=== PATIENT | male | born 1975 | race African-American/Black ===

== ENCOUNTER 2023-10-31 20:19 | Emergency (ER) | payer OTHER, SELFPAY ==
[2023-10-31 20:28] VITALS: BP 188/108; PULSE 87; RESP 16; TEMP 36.6; O2SAT 98; BMI 40.5
--- NOTE | 2023-10-31 20:36 | DI.RAD.S_ITS ---
PROCEDURE: XR SHOULDER LT MIN 2V INDICATIONS: pain TECHNIQUE: 3 views of the shoulder were acquired. COMPARISON: None. FINDINGS: Bones: No fractures or dislocations. No suspicious bony lesions. Visualized ribs appear intact. Soft tissues: No suspicious soft tissue calcifications. IMPRESSION: No acute bony abnormality. Dictated by: Chris Sharma M.D. on 10/31/2023 at 20:58 Approved by: Chris Sharma M.D. on 10/31/2023 at 20:58
--- NOTE | 2023-10-31 20:36 | DI.RAD.S_ITS ---
PROCEDURE: XR WRIST LT MIN 3V INDICATIONS: pain TECHNIQUE: 3 views of the wrist were acquired. COMPARISON: None. FINDINGS: Bones: No fractures or dislocations. No suspicious bony lesions. Soft tissues: No suspicious soft tissue calcifications. IMPRESSION: No acute bony abnormality. Dictated by: Chris Sharma M.D. on 10/31/2023 at 20:58 Approved by: Chris Sharma M.D. on 10/31/2023 at 20:59
[2023-10-31 21:06] VITALS: BP 171/112; PULSE 80; RESP 18; O2SAT 99
[2023-10-31 22:06] VITALS: BP 172/89; PULSE 86; RESP 18; O2SAT 97
--- NOTE | 2023-10-31 22:12 | ED_ITS ---
HPI - Extremity Problem General Chief complaint: Extremity Problem,Nontraumatic Stated complaint: lt shoulder pain Time Seen by Provider: 10/31/23 22:11 Source: patient Mode of arrival: Ambulatory History of Present Illness HPI Narrative: 48-year-old gentleman with a history of diabetes on nighttime insulin, hypertension who presents with acute onset left shoulder pain to the point that he is unable to move the left shoulder joint. He is noticing some swelling down the arm with swelling into the hand in the wrist without significant joint pain in the hand or the wrist. No fevers or warmth. No obvious trauma. Symptoms have been increasing over the last 24 hours. He does not describe current problems with other joints. No recent fever cough or chills. He does note that they are other family members with rheumatoid arthritis and he is wondering if he may in fact have rheumatoid arthritis. He will occasionally have severe painful flares in various joints including shoulders wrists feet and ankles. Related Data Previous Rx's Medication Instructions Recorded methylprednisolone 4 mg tablets in See Rx Instructions PO .COMPLEX 11/01/23 a dose pack (Medrol (Luciano)) #21 ea Allergies Allergy/AdvReac Type Severity Reaction Status Date / Time No Known Drug Allergies Allergy Verified 10/31/23 20:32 Review of Systems Review of Systems Narrative: Pertinent positive and negative findings as per HPI Patient History Medical History (Updated 11/01/23 @ 00:46 by Susanna Wall MD) Hypertension Type 2 diabetes mellitus Social History Smoking Status: Never smoker Smoking Status: Never smoker Substance Use Type: does not use Exam Initial Vital Signs Initial Vital Signs: Vital Signs Temperature 97.8 F 10/31/23 20:28 Pulse Rate 87 10/31/23 20:28 Respiratory Rate 16 10/31/23 20:28 Blood Pressure 188/108 H 10/31/23 20:28 Pulse Oximetry 98 10/31/23 20:28 Oxygen Delivery Method Room Air 10/31/23 20:28 General: Alert appropriate, moderate pain and unable to move his left shoulder joint. Gentleman has a a BMI of 50 and is heavily muscled making joint exam somewhat more challenging Respiratory: Able to speak in full sentences, no obvious respiratory distress Skin: No obvious rashes, warm and dry Neurologic: Grossly intact no obvious asymmetries or abnormalities Psych: appropriate insight and affect, cooperative Musculoskeletal: Left shoulder does not have any warmth or erythema. There is fullness over the shoulder and deltoid area. He does not have any tenderness at the AC joint with specific palpation. He has tenderness with any movement of the shoulder joint at all. If the shoulder joint is stabilized he does not have tenderness at the elbow or wrist on the left side. He does have slight swelling to the left arm to the fingers in comparison to the right side again without any erythema. Bedside ultrasound of the left shoulder does not suggest significant bursal collection or large joint effusion Course Orders Ordered: ED Orders 10/31/23 20:36 XR shoulder LT min 2V Stat XR wrist LT min 3V Stat 10/31/23 22:55 CBC Auto Diff [Complete Blood Count AUTO DIFF] Stat CRP [C-Reactive Protein Quant] Stat Erythrocyte Sedimentation Rate Stat Discontinued Medications Acetaminophen (Acetaminophen 325 Mg Tablet) 325 mg PO NOW ONE Stop: 10/31/23 22:28 Last Admin: 10/31/23 22:32 Dose: 325 mg Documented By: ZOE Ibuprofen (Ibuprofen 400 Mg Tablet) 400 mg PO NOW ONE Stop: 10/31/23 22:28 Last Admin: 10/31/23 22:31 Dose: 400 mg Documented By: ZOE Vital Signs Vital signs: Vital Signs - 8 hr 10/31/23 20:28 10/31/23 21:06 10/31/23 22:06 Temperature 97.8 F Pulse Rate 87 80 86 Respiratory Rate 16 18 18 Blood Pressure 188/108 H 171/112 H 172/89 H Pulse Oximetry 98 99 97 Oxygen Delivery Method Room Air Room Air Room Air MDM - Extremity (Nontraumatic) Lab Data 10/31/23 22:55 Labs: Lab Results 10/31/23 Range/Units 22:55 WBC 8.3 (4.5-11.0) X10^3/uL RBC 4.26 L (4.5-5.9) X10^6/uL Hgb 12.8 L (13.5-17.5) g/dL Hct 37.0 L (41-53) % MCV 86.9 (80-100) fL MCH 30.1 (26-34) PG MCHC 34.6 (30-36) % RDW 13.7 (11.6-14.8) % Plt Count 311 (150-400) X10^3/uL Neut % (Auto) 58.7 (50-75) % Lymph % (Auto) 28.4 (25-40) % Schley % (Auto) 6.7 (3-14) % Eos % (Auto) 5.1 H (2-4) % Baso % (Auto) 1.1 (0-2) % Neut # (Auto) 4900 (7615-5329) /uL Lymph # (Auto) 2400 (7036-6275) /uL Schley # (Auto) 600 (0-900) /uL Eos # (Auto) 400 (0-450) /uL Baso # (Auto) 100 (0-100) /uL ESR 58 H (0-15) MM/HR C-Reactive Protein 1.2 H (<1.0) mg/dL MDM Narrative Medical decision making narrative: CC: Left shoulder pain Complicating co-morbidities: Diabetes, hypertension, heavily muscled making joint exam difficult Data collected from: patient Differential considered: Septic joint, rheumatoid arthritis, osteoarthritis, trauma, gout, bursitis Exam documented above, pertinent findings include: Exquisite tenderness to any movement of the shoulder joint but he does not have significant pain with palpation over the joint itself. Mild swelling of the left upper extremity. He does not have active synovitis or sequelae of rheumatoid arthritis on physical exam today Lab Test results independently reviewed as above. Pertinent findings: CBC shows normal white count CRP and sed rate are both elevated Imaging studies independently reviewed: Left shoulder and wrist x-rays show no acute bony abnormalities Treatments: Ibuprofen and Tylenol which did not influence his pain at all. 8 mg of dexamethasone, Percocet prepack for home use Discussion: 48-year-old gentleman with significant left shoulder pain no warmth or erythema. Ultrasound does not suggest significant bursal collection or fluid collection within the joint itself. Possibility of rheumatoid arthritis is entertained. Rheumatoid factor is obtained patient will need follow up with his outpatient provider. He is placed in a sling for comfort. Have given him 8 mg of dexamethasone for inflammation and will have him complete a Medrol Dosepak. Did make him aware that this will make his blood sugars go up and he may need to add 1 or 2 units of insulin for the next couple of days. Encouraged him to follow up with the primary care provider to discuss the possibility of rheumatoid arthritis, if symptoms within the shoulder not improving he will need further evaluation and possible orthopedic referral. I do not think that he has a septic joint at this time but I did warn him that if he is having fevers, increasing pain or redness to the shoulder he needs to be further evaluated. Questions are answered and he is safe for discharge Discharge Plan Departure Patient Disposition: Home Clinical Impression: Acute pain of left shoulder Instructions: DI for Shoulder Pain Activity Restrictions/Additional Instructions: Thank you for coming in today At this point, there does not appear to be any trauma, bursitis, obvious joint effusion (this is based on the ultrasound we did at the bedside) and I do not think that you have a septic joint(infected joint fluid). I have given you a dose of dexamethazone in the ER. This is a powerful antiinflammatory steroid to help with pain and inflammation. 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 Using 400 mg of ibuprofen (2 [id number] pills) and 1 Tylenol every 6 hours can be very helpful in controlling pain. For severe pain you can use 400 mg of ibuprofen and 1 Percocet, I have given you some Percocet tablets to take home from the emergency department Please use the sling for comfort. I have added a rheumatoid factor to your blood work done at [facility] today. Your primary care doctor we will need to help with further evaluation regarding the blood test. If you find that you are getting worse or develop any new symptoms, please feel free to return to the emergency department for further evaluation. Prescriptions: New methylprednisolone [Medrol (Luciano)] 4 mg tablets,dose pack See Rx Instructions .ROUTE .COMPLEX Qty: 21 0RF Rx Instructions: orally per package directions Referrals: Lynn Martinez DO [Primary Care Provider] - Stand Alone Forms: Patient Portal/API
[2023-10-31] MEDS: IBUPROFEN 400 MG TABLET PO (22:31)
[2023-10-31] MEDS: ACETAMINOPHEN 325 MG TABLET PO (22:32)
[2023-10-31 23:13] LABS: Add Manual Diff / Slide Review NO; Basophils Absolute Auto 100 /uL (0-100); Basophils Percent Auto 1.1 % (0-2); Eosinophils Absolute Auto 400 /uL (0-450); Eosinophils Percent Auto 5.1 % (2-4); Hemoglobin 12.8 g/dL (13.5-17.5); Lymphocytes Absolute Auto 2400 /uL (1100-4500); Lymphocytes Percent Auto 28.4 % (25-40); Mean Corpuscular HGB Conc 34.6 % (30-36); Mean Corpuscular Hemoglobin 30.1 PG (26-34); Mean Corpuscular Volume 86.9 fL (80-100); Monocytes Absolute Auto 600 /uL (0-900); Monocytes Percent Auto 6.7 % (3-14); Neutrophils Absolute Auto 4900 /uL (1500-7000); Neutrophils Percent Auto 58.7 % (50-75); Platelet Count 311 X10^3/uL (150-400); Red Blood Cell Count 4.26 X10^6/uL (4.5-5.9); Red Cell Distribution Width 13.7 % (11.6-14.8); White Blood Cell Count 8.3 X10^3/uL (4.5-11.0)
[2023-10-31 23:32] LABS: Erythrocyte Sedimentation Rate 58 MM/HR (0-15)
[2023-10-31 23:44] LABS: C-Reactive Protein Quant 1.2 mg/dL (<1.0)
[2023-11-01] MEDS: dexAMETHasone 4 MG TABLET 8 MG PO (00:57)
[2023-11-01] MEDS: OXYCODONE/APAP 5/325 PREPACK 1 BOTTLE MISC (00:57)
[2023-11-01 01:03] VITALS: PULSE 158; RESP 16; TEMP 36.3; O2SAT 98
[2023-11-01 01:38] LABS: Rheumatoid Factor < 8.6 IU/mL (<12.0)
== END 2023-11-01 01:04 | disposition home or self-care (01) ==
PROVIDERS: Emergency Provider Emergency Medicine; PCP Family Medicine
DX: M25.512 Pain in left shoulder (principal)
CPT/HCPCS: 36415; 73030; 73110; 85025; 85651; 86140; 86430; 99283; 99284